=== PATIENT | female | born 1955 | race Caucasian/White ===

== ENCOUNTER 2020-12-09 14:47 | Inpatient (IN) | payer BC ==
[~2020-12-09] VITALS: Ht 160 cm; Wt 74.6 kg
[2021-01-04] VITALS (12 sets, daily range): BP systolic 96–117; BP diastolic 53–82; PULSE 51–68; TEMP 97.7–98.3
--- NOTE | 2021-01-04 07:30 | NUR ---
PATIENT'S BELONGINGS BROUGHT INTO PACU BAY. PATIENT'S ESCORTED TO SURGICAL WAITING ROOM.
--- NOTE | 2021-01-04 09:45 | NUR ---
Pt arrived to floor viabed at this time with PACU staff. Alert andoriented. R knee dressing CDI. Ice pack in place. Pt unable to feel or move BLE at this time d/t anesthesia, VSS, will continue to monitor. Coffee and water provided per request.
--- NOTE | 2021-01-04 18:40 | NUR ---
Pt has had some pain and nausea over shift. Resting in bed, did get up to commode once. Vomited once over shift. REsting in bed with at bedside. Denies needs beyond pain meds, will provide and give bedside shift report to nightift nruse whow ill resume care.
--- NOTE | 2021-01-05 00:23 | NUR ---
PATIENT WITH DECREASED ROM/STRENGTH TO RLE DUE TO KNEE SURGERY RECENTLY, ON 01/04. DENIES NUMBNESS/TINGLING TO EXTREMITIES. DENIES CHEST PAIN/SOA. REPORTED SOME DIZZINESS AND SLIGHT NAUSEA WITH OUT OF BED ACTIVITY WITH INCREASED COMPLAINTS OF PAIN TO R KNEE. PATIENT UP TO BSC WITH MAX ASST X1 W/GB AND WALKER. INT IN PLACE TO L HAND.
--- NOTE | 2021-01-05 02:20 | NUR ---
DENIES NEED FOR BSC, GIVEN SCHEDULED MEDS. INT IN PLACE, PATENT WITH SALINE FLUSHES. DENIES NAUSEA AT THIS TIME.
[2021-01-05 04:06] VITALS: BP 95/53; PULSE 74; TEMP 98.2
--- NOTE | 2021-01-05 06:15 | NUR ---
OFFERED PAIN MEDS WHEN GIVING SCHEDULED MEDS AT 0400, REFUSED OFFER OF NARCOTIC PAIN MEDS AFTER MENTIONING THAT PAIN LEVEL IS 8/10 THAT IS PRESSURE FEELING. REASSURED PATIENT THAT SHE CAN HAVE PAIN MEDS IF NEEDED LATER IN AM PRIOR TO PT, THAT PAIN CONTROL WILL HELP WITH PERFORMING PT/OT TREATMENT MORE COMFORTABLY.
[2021-01-05 07:10] VITALS: BP 109/60; PULSE 70; TEMP 98.2
--- NOTE | 2021-01-05 07:10 | NUR ---
CHANGE OF SHIFT REPORT GIVEN TO DAY SHIFT NURSE, DARCY QUIÑONES.
--- NOTE | 2021-01-05 09:01 | NUR ---
PT RESTING IN BED. HAS BEEN UP TO BR AND VOIDED OVERNOC PER REPORT FROM PT. DRESSING CDI TO RIGHT KNEE. PAIN WELL CONTROLLED WITH PO MEDS. VSS. PT HAS HAD SOME NAUSEA OVER NOC. IV ZOFRAN EFFECTIVE PER REPORT.
--- NOTE | 2021-01-05 10:08 | NUR ---
Initial visit Patient thanked Reinsurance Claim Analyst for looking in on her and offering God's blessings and keeping her in Reinsurance Claim Analyst's prayers.
--- NOTE | 2021-01-05 10:36 | NUR ---
HOLLI met with the patient and her , Jared ([phone]), to discuss discharge plan. The patient lives in [place] with her . She reports independence with ADLs and has a cane and walker. The patient's PCP is Dr. Tyler Haynes and she receives her medications from [facility] (formerly known as [facility] She reports no difficulties obtaining her meds. The patient does not have a DPOA-HC and she was not interested in completing one at this time. The patient plans to return home with her and receive outpatient PT at [facility] upon discharge. No additional needs at this time. *Discharge plan: home with and outpatient PT*
[2021-01-05 11:27] VITALS: BP 113/49; PULSE 69; TEMP 98.2
[2021-01-05 16:00] VITALS: BP 120/61; PULSE 66; TEMP 97.8
--- NOTE | 2021-01-05 16:19 | NUR ---
DRESSING CHANGE COMPLETE, HUSAM INTACT. AQUACEL PLACED OVER INCISION.
--- NOTE | 2021-01-05 18:50 | NUR ---
RECEIVED CHANGE OF SHIFT REPORT FROM DAY SHIFT NURSE. RENEWED ICE PACK. INT IN PLACE. PATIENT DENIES ANY FURTHER NEEDS. REPORTS HAS NO APPETITE AT THIS TIME.
--- NOTE | 2021-01-05 18:52 | NUR ---
REPORT TO KIZZY CORBIN
[2021-01-05 19:11] VITALS: BP 117/53; PULSE 67; TEMP 98.8
[2021-01-06 00:33] VITALS: BP 118/59; PULSE 77; TEMP 98.3
[2021-01-06 04:11] VITALS: BP 120/67; PULSE 77; TEMP 98.7
[2021-01-06] MEDS ORDERED: XARELTO10 MG PO (06:52)
[2021-01-06] MEDS ORDERED: ROXICODONE 55 MG/TAB PO (06:53)
[2021-01-06] MEDS ORDERED: NORCO 325 MG-7.1 TAB PO (06:54)
--- NOTE | 2021-01-06 07:22 | NUR ---
SERENA ONTIVEROS PA IN TO SEE PT THIS AM. PLAN ON DISCHARGE AFTER PM THERAPY. PT DENIES NEEDS AT BEDSIDE REPORT.
--- NOTE | 2021-01-06 07:23 | NUR ---
CHANGE OF SHIFT REPORT GIVEN TO DAY SHIFT NURSE, DARCY QUIÑONES.
[2021-01-06 08:00] VITALS: BP 126/64; PULSE 79; TEMP 97.8
--- NOTE | 2021-01-06 09:33 | NUR ---
PT IMPROVING WITH NAUSEA AND PAIN. PLAN ON DISCHARGE AFTER PM THERAPY. OUT TO [facility] FOR AM THERAPY. DRESSING TO RIGHT KNEE CDI.
--- NOTE | 2021-01-06 11:15 | NUR ---
INT DISCONTINUED TIP INTACT, PT TOLERATED WELL.
[2021-01-06 12:00] VITALS: BP 109/64; PULSE 98; TEMP 98
--- NOTE | 2021-01-06 14:17 | NUR ---
DISCHARGE INSTRUCTIONS REVIEWED WITH PT. QUESTIONS ANSWERED. PT TAKEN TO PARKING LOT PER WHEEL CHAIR @1400.
== END 2021-01-06 14:00 | disposition home or self-care (01) | DRG 470 ==
LOC: INPTSU 01-04 05:21 → SURG 01-04 07:30
PROVIDERS: ADMIT Orthopaedic Surgery
PROC: 0SRC0J9 Replacement of Right Knee Joint with Synthetic Substitute, Cemented, Open Approach (ICD-10-PCS; principal; 2021-01-06)
DX: M17.11 Unilateral primary osteoarthritis, right knee (principal)
CPT/HCPCS: A9284; C1713; C1776; J0690; J1885; J2250; J2405; J2704; J2795; J3010; J7120